=== PATIENT | female | born 1960 | race Caucasian/White ===

== ENCOUNTER 2023-05-17 11:02 | Outpatient (REF) | payer BC, SELFPAY ==
--- NOTE | ~2023-05-17 | XR_ITS ---
EXAMINATION: XR KNEE, RIGHT CLINICAL INFORMATION: Right medial knee pain. COMPARISON: None available. TECHNIQUE: Four views of the right knee. FINDINGS: There is jjpd-am-acukvamd medial compartment osteoarthritis with associated small marginal osteophytes. Lateral and patellofemoral compartments are normal. No effusion. No fracture or malalignment. XR/XR knee RT 4V IMPRESSION: Zuyu-uk-btubfwcd medial compartment osteoarthritis.
== END 2023-05-17 11:03 | disposition home or self-care (01) ==
LOC: HO.XRAY 11:02
PROVIDERS: PCP Family Medicine; Visit Provider Family Medicine
DX: M25.561 Pain in right knee (principal)
CPT/HCPCS: 73564

== ENCOUNTER 2025-04-04 10:20 | Outpatient (REF) | payer BC, SELFPAY ==
[2025-04-04 14:06] LABS: MANUAL DIFF FLAG NO
[2025-04-04 14:16] LABS: Hematocrit 39.6 % (37.0-47.0); Hemoglobin 12.7 g/dl (12.0-16.0); Imm Gran Abs Auto 0.01 X10*3/uL (0.00-0.03); Imm Gran Pct Auto 0.2 % (0.0-0.4); Lymphocytes Absolute Auto 2.0 X10*3/uL (1.2-4.9); Mean Corpuscular HGB Conc 32.1 g/dl (31.0-35.0); Mean Corpuscular Hemoglobin 29.6 pg (27.0-33.0); Mean Corpuscular Volume 92.3 fL (80.0-98.0); NRBC Abs Auto 0.000 X10*3/uL (0.0-0.012); NRBC Pct Auto 0.0 /100WBC (0.0-0.2); Platelet Count 343 X10*3/uL (160-400); Red Blood Count 4.29 X10*6/uL (4.20-5.50); White Blood Count 5.6 X10*3/uL (4.8-10.8)
[2025-04-04 14:29] LABS: Alanine Aminotransferase 14 U/L (0-31); Albumin Level 4.5 g/dL (3.5-5.0); Alkaline Phosphatase 60 U/L (39-117); Anion Gap 10 (12-20); Aspartate Amino Transferase 26 U/L (5-31); Blood Urea Nitrogen 12 mg/dL (9-16); Calcium 9.1 mg/dL (8.4-10.2); Carbon Dioxide 29 mmol/L (22-29); Chloride 107 mmol/L (96-108); Cholesterol 214 mg/dL (<200); Estimated Glomerular Filt Rate > 60; HDL Cholesterol 41 mg/dL (>40); Potassium 3.8 mmol/L (3.3-5.1); Sodium 142 mmol/L (135-145); Total Protein 7.3 g/dL (6.5-8.0); Triglycerides 138 mg/dL (<150)
[2025-04-04 14:53] LABS: Folate 9.4 ng/mL (> or = 4.0); Vitamin B12 406 pg/mL (200-900)
[2025-04-08 12:18] LABS: VITAMIN D (1,25 OH) D3 47 pg/mL; Vit D (1,25-Dihydroxy) Total 47 pg/mL (18-72); Vitamin D (1,25 OH) D2 <8 pg/mL
== END 2025-04-04 10:21 | disposition home or self-care (01) ==
LOC: HO.WFDLDS 10:20
PROVIDERS: PCP Family Medicine; Visit Provider Internal Medicine
DX: Z00.00 Encounter for general adult medical examination without abnormal findings (principal); E53.8 Deficiency of other specified B group vitamins; E55.9 Vitamin D deficiency, unspecified; D22.9 Melanocytic nevi, unspecified; Z87.09 Personal history of other diseases of the respiratory system; Z13.220 Encounter for screening for lipoid disorders; Z13.1 Encounter for screening for diabetes mellitus
CPT/HCPCS: 36415; 80053; 80061; 82607; 82652; 82746; 83036; 84443; 85025; 96127

== ENCOUNTER 2025-04-04 10:20 | Outpatient (AMB) | payer BC, SELFPAY ==
--- NOTE | 2025-04-04 10:24 | A.OFFPC_ITS ---
Vital Signs 04/04/25 10:27 Height 5 ft 4.96 in Weight 182 lb 8 oz BMI 30.4 BP 126/74 Blood Pressure Location Rt brachial Position Sitting Respiration 14 Pulse 70 Pulse Source Pulse Oximeter Temp 70 F L Temp Source Oral Pulse Oximetry (%) 97 Oxygen Delivery Method Room Air Intake Visit Reasons: CPE Intake Note: New patient visit Circus Supervisor Required: No Allergies aspirin Allergy (Severe, Verified 04/04/25 10:36) Anaphylaxis codeine Allergy (Severe, Verified 04/04/25 10:36) Hallucinations azithromycin Allergy (Unknown, Verified 04/04/25 10:36) Rash diphenhydramine (From Benadryl) Adverse Reaction (Unknown, Verified 04/04/25 10:36) reversed effects Tobacco use date assessed: 04/04/25 Fall risk assessment: No Falls in past year Last assessed Fall Risk: 04/04/25 Dental Screening Dental Screen Date: 04/04/25 Did you have a dental visit in the last 12 months?: Yes Did you have a dental problem in the last 6 months where you did not have access to dental care?: No Was dental information given to patient?: Patient has dentist HPI HPI Comments History of Present Illness Details The patient is a 65 year old female with a past medical history of sinusitis presenting for CPE A few new moles, back, neck. She has a skin lesion that has grown over time- pubic area. Non painful Colonoscopy September 2024-5 years Mammogram May 2024-[facility] Does not follow with gynecology Decline Td Declines flu vaccination ROS CONSTITUTIONAL: Denies weight loss, fever and chills. HEENT: Denies changes in vision and hearing. RESPIRATORY: Denies SOB and cough. CV: Denies palpitations and CP GI: Denies abdominal pain, nausea, vomiting and diarrhea. : Denies dysuria and urinary frequency. MSK: Denies new myalgia and joint pain. SKIN: see HPI NEUROLOGICAL: Denies headache PSYCHIATRIC: Denies recent changes in mood. PHYSICAL EXAM: GENERAL: Alert and oriented x 3. NAD EYES: EOMI. Anicteric. HENT: Moist mucous membranes. No scleral icterus. No cervical lymphadenopathy. LUNGS: Clear to auscultation bilaterally. CARDIOVASCULAR: Regular rate and rhythm. No murmur. No JVD. ABDOMEN: Soft, non-tender +bs EXTREMITIES: No edema. Non-tender. SKIN: Pearly raised lesion pubic mound. Scattered nevi,AKs,SKs NEUROLOGIC: No focal neurological deficits. CN II-XII grossly intact PSYCHIATRIC: Cooperative. Appropriate mood and affect [facility] Surgical History (Updated 04/04/25 @ 10:31 by Mary Alvarez CMA) History of appendectomy Hx of tonsillectomy Family History (Updated 04/04/25 @ 10:32 by Mary Alvarez CMA) Mother Cardiovascular disease Father Cardiovascular disease Maternal Grandmother Cardiovascular disease Father Breast cancer Social History Housing: House Patient Tobacco Use Status: Never used Tobacco e-Cigarette/Vaping Use: Never Used Second Hand Smoke Exposure: No service: No Current occupational status: retired Cognitive needs: No Hearing needs: No Vision needs: No Questionnaire PHQ-9 Over the last 2 weeks, how often have you been bothered by any of the following problems? 1. Little interest or pleasure in doing things: not at all 2. Feeling down, depressed, or hopeless: not at all 3. Trouble falling or staying asleep, or sleeping too much: not at all 4. Feeling tired or having little energy: not at all 5. Poor appetite or overeating: not at all 6. Feeling bad about yourself - or that you are a failure or have let yourself or your family down: not at all 7. Trouble concentrating on things, such as reading the newspaper or watching television: not at all 8. Moving or speaking so slowly that other people could have noticed. Or the opposite - being so fidgety or restless that you have been moving around a lot more than usual: not at all 9. Thoughts that you would be better off or of hurting yourself in some way: not at all Total score: 0 Depression Screening Interpretation: Negative Depression Screening Done: Yes 20665 - PHQ-9 Billing: Yes Source: Developed by Drs. Ross Hadley, Roseann Guido, Chun Ruiz and colleagues, with an educational joivta from [employer]. Thrive Questionnaire I am a: Patient What is your living situation today?: I have a steady place to live Within the past 12 months, did the food you bought not last and you didn't have the money to get more?: Never true Within the past 12 months, did you worry whether your food would run out before you got money to buy more?: Never true Do you have trouble paying for medicines?: No Do you have trouble getting transportation to medical appointments?: No Do you have trouble paying your heating and electricity bill?: No Do you have trouble taking care of your child, family member or friend?: No Do you have trouble with day-to-day activities such as bathing, preparing meals, shopping, managing finances, etc.?: No Are you currently unemployed and looking for a job?: No Are you interested in more education?: No Please select the resources that you would like help with: None Currently or been in a relationship where the following occur: No concerns reported THRIVE Score: 0 AUDIT C Alcohol Use Questionnaire (AUDIT-C) 1. How often do you have a drink containing alcohol?: Never Total Score: 0 DANIEL-7 AMB Questionnaire DANIEL-7 Feeling nervous, anxious, or on edge: 0 = Not at all Not being able to stop or control worryin = Not at all Worrying too much about different things: 0 = Not at all Trouble relaxin = Not at all Being so restless that it is hard to sit still: 0 = Not at all Becoming easily annoyed or irritable: 0 = Not at all Feeling afraid as if something awful might happen: 0 = Not at all Total DANIEL-7 score (0-4 normal; 5-9 mild; 10-14 moderate; 15-21 severe): 0 Source: Developed by Drs. Ross Hadley, Roseann Guido, Chun Ruiz and colleagues, with an educational jovita from [employer]. Physical exam (Primary Care) Vital Signs: Last Vital Signs Temp 70 F L 04/04/25 10:27 Pulse 70 04/04/25 10:27 Resp 14 04/04/25 10:27 BP 126/74 04/04/25 10:27 Pulse Ox 97 04/04/25 10:27 Oxygen Delivery Method Room Air 04/04/25 10:27 BMI result Body Mass Index 30.4 Tobacco/Smoking Status: Tobacco use Status Tobacco use date assessed 04/04/25 04/04/25 10:31 Patient Tobacco Use Status Never used Tobacco 04/04/25 10:31 e-Cigarette/Vaping Use Never Used 04/04/25 10:31 PHQ-9: PHQ-9 Score PHQ-9: Total score 0 04/04/25 10:34 Depression Screening Interpretation: Negative Currently or been in a relationship where the following occur: No concerns r eported Coding Level of Care Code New Pt [facility] Care 40-64y(57173) Diagnoses Physical exam Z00.00 Multiple nevi D22.9 Additional Codes PHQ-9 - 00082 - PHQ-9 Billing: Yes ([id number]) Assessment & Plan Assessment & Plan (1) Physical exam: Code(s): Z00.00 - Encounter for general adult medical examination without abnormal findings (2) Multiple nevi: Code(s): D22.9 - Melanocytic nevi, unspecified Category: Medical Plan 65 year old presenting to [facility]/CPE Past medical, surgical, social history reviewed Preventive measures for age discussed Skin lesion-referral dermatology Labs ordered Orders: Orders Comprehensive Met. Panel 04/04/25 E53.8 - Deficiency of other specified B group vitamins, E55.9 - Vitamin D deficiency, unspecified, Z00.00 - Encounter for general adult medical examination without abnormal findings, Z13.220 - Encounter for screening for lipoid disorders, Z87.09 - Personal history of other diseases of the respiratory system Lipid Panel 04/04/25 E53.8 - Deficiency of other specified B group vitamins, E55.9 - Vitamin D deficiency, unspecified, Z00.00 - Encounter for general adult medical examination without abnormal findings, Z13.220 - Encounter for screening for lipoid disorders, Z87.09 - Personal history of other diseases of the respiratory system Vitamin B12 and Folate 04/04/25 E53.8 - Deficiency of other specified B group vitamins, E55.9 - Vitamin D deficiency, unspecified, Z00.00 - Encounter for general adult medical examination without abnormal findings, Z13.220 - Encounter for screening for lipoid disorders, Z87.09 - Personal history of other diseases of the respiratory system Vitamin D 1,25 dihydroxy 04/04/25 E53.8 - Deficiency of other specified B group vitamins, E55.9 - Vitamin D deficiency, unspecified, Z00.00 - Encounter for general adult medical examination without abnormal findings, Z13.220 - Encounter for screening for lipoid disorders, Z87.09 - Personal history of other diseases of the respiratory system MM tomosynthesis screening BI 04/04/25 Z12.31 - Encounter for screening mamm ogram for malignant neoplasm of breast Complete Blood Count Auto Diff 04/04/25 E53.8 - Deficiency of other specified B group vitamins, E55.9 - Vitamin D deficiency, unspecified, Z00.00 - Encounter for general adult medical examination without abnormal findings, Z13.220 - Encounter for screening for lipoid disorders, Z87.09 - Personal history of other diseases of the respiratory system TSH reflex Free T4 04/04/25 E53.8 - Deficiency of other specified B group vitamins, E55.9 - Vitamin D deficiency, unspecified, Z00.00 - Encounter for general adult medical examination without abnormal findings, Z13.220 - Encounter for screening for lipoid disorders, Z87.09 - Personal history of other diseases of the respiratory system Hemoglobin A1c 04/04/25 E53.8 - Deficiency of other specified B group vitamins, E55.9 - Vitamin D deficiency, unspecified, Z00.00 - Encounter for general adult medical examination without abnormal findings, Z13.220 - Encounter for screening for lipoid disorders, Z87.09 - Personal history of other diseases of the respiratory system Referrals Dermatology Referral L98.9 - Disorder of the skin and subcutaneous tissue, unspecified
[2025-04-04 10:27] VITALS: BP 126/74; PULSE 70; RESP 14; TEMP 21.1; O2SAT 97; BMI 30.4
--- OUTSIDE RECORDS SUMMARY | 2025-04-04 11:40 | XMS_ITS | Clinical Summary ---
Author Organization [facility] Address [address] [place], [place] [id number] Phone Care Team Providers Care Cell Installer Name Role Phone Kenny Yates MD Primary Care Provider Allergies Active Allergy Reactions Criticality Noted Date Comments Adhesive Rash Low 09/19/2014 Codeine Hallucinations,Unknown High 09/19/2014 Diphenhydramine Unknown 09/19/2014 Other Reaction(s): increased swelling Erythromycin Unknown 09/19/2014 Other Reaction(s): rash Naproxen Anaphylaxis High 09/19/2014 Tobramycin Unknown 12/23/2022 Medications No known medications Active Problems No known active problems Family History Medical History Relation Comments Cancer Mother 2 Relation Status Comments Mother 1 Mother 2 Social History Tobacco Use Types Packs/Day Years Used Date Smoking Tobacco: Never Smokeless Tobacco: Never Tobacco Cessation:Counseling Given: Not Answered Education Answer Date Recorded Are you interested in more education? Not on ceci e 11/14/2024 Are you concerned about learning? Not on file 11/14/2024 No 11/14/2024 No 11/14/2024 Digital Access Answer Date Recorded No 11/14/2024 No 11/14/2024 Reliable internet access at home? Not on file 11/14/2024 Device with a working camera? Not on file Comments Unknown Sex and Gender Information Value Date Recorded Sex Assigned at Not on file Legal Sex Female 9:47 PM EDT Gender Identity Not on file Sexual Orientation Not on file Last Filed Vital Signs Vital Sign Reading Time Taken Comments Blood Pressure 136/86 11/14/2024 12:12 PM EDT Pulse 100 11/14/2024 12:12 PM EDT Temperature 39 C (102.2 F) 11/14/2024 12:12 PM EDT Respiratory Rate 18 11/14/2024 12:12 PM EDT Oxygen Saturation 98% 11/14/2024 12:12 PM EDT Inhaled Oxygen Concentration - - Weight 80.3 kg (177 lb) 11/14/2024 12:12 PM EDT Height 167.6 cm (5' 6 ) 11/14/2024 12:12 PM EDT Body Mass Index 28.57 11/14/2024 12:12 PM EDT Plan of Treatment Health Maintenance Due Date Last Done Comments Adult Td,Tdap Booster 1961 LIPID PANEL 1961 DEPRESSION SCREENING 1973 HEPATITIS C SCREENING 1979 HIV ONE-TIME SCREENING (18-6 5 YEARS) 1979 PAP SMEAR 1982 SCREENING FOR DIABETES 1996 MAMMOGRAM 2001 COLOGUARD 2006 COLONOSCOPY 2006 COLORECTAL CANCER SCREENING 2006 FIT TEST 2006 FOBT 2006 SIGMOIDOSCOPY 2006 VIRTUAL COLONOSCOPY 2006 PNEUMOCOCCAL VACCINES (50+ years) (1 of 1 - PCV) 2011 ZOSTER VACCINES (1 of 2) 2011 INFLUENZA VACCINE (#1) 2025 COVID-19 VACCINE (3 - 2024-2 6 season) 2025 10/03/2020, 09/12/2020 RSV VACCINE (1 - 1-dose 75+ series) 2036 SMOKING STATUS SCREENING (On ce After 26 Yrs) Completed 11/14/2024 HEPATITIS A VACCINES Aged Out No long er eligible based on patient's age to complete this topic HIB VACCINES Aged Out No longer eligi ble based on patient's age to complete this topic MENINGOCOCCAL VACCINES (ACWY) Aged Out No longer eligible based on patient's age to complete this topic MENINGOCOCCAL VACCINES (B) Aged Out N o longer eligible based on patient's age to complete this topic Medical Devices Not on file Insurance [facility] [place] [address] [place] [address] [address] [place] [address] [place] [address] [place] [address] [place] [address] PPO EPO Care Teams Cell Installer Relationship Specialty Start Date End Date Kenny Yates MD [address] [place] [address] [place] [address] PCP - General 06/08/17 Additional Source Comments The information contained in this document represents components of the legal health record. It is not the complete legal health record.[facility]
--- OUTSIDE RECORDS SUMMARY | 2025-04-04 11:40 | XMS_ITS | Encounter Summary ---
Author Organization [facility] Address [address] [place] [address] Care Team Providers Care Telegraph Mechanic Name Role Phone Kenny Yates MD Primary Care Provider [phone] Encounter Details Date Type Department Care Team (Late st Contact Info) Description 08/23/2021 Lab Requisition [facility] Pathology & Laboratory Medicine - [facility] [address] [place] [address] Javi Lindsey MD [address] [place] [id number] Encounter for other general examination Social History Tobacco Use Types Packs/Day Years Used Date Smoking Tobacco: Never Assessed Comments Unknown Sex and Gender Information Value Date Recorded Sex Assigned at Not on file Legal Sex Female 13:07 EDT Gender Identity Not on file Sexual Orientation Not on file documented as of this encounter Plan of Treatment Not on file documented as of this encounter Procedures Procedure Name Priority Date/Time Associated Diagnosis Comments SURGICAL PATHOLOGY Today 08/23/2021 12 :10 EDT documented in this encounter Results * SURGICAL PATHOLOGY (08/23/2021 12:10 EDT) Note to Patient The following pathology results have been interpreted by your pathologist and may be available to you before your health provider has had the opportunity to review them. Please allow time for your provider to receive these results and explore management options, if applicable. 08/26/2021 18:02 EDT [facility] Final Diagnosis A. COLON, RIGHT, POLYPS, BIOPSY: - Fragments of sessile serrated adenoma(s). - Fragments of tubular adenoma(s). B. COLON, MID TRANSVERSE, POLYPS, BIOPSY: - Fragments of sessile serrated adenoma(s). - Fragments of tubular adenoma(s). 08/26/2021 18:02 [facility] Attestation By the signature below, the attending physician certifies that they have 1) personally conducted a gross and/or microscopic examination of the described specimen(s), and/or personally interpreted the results of laboratory testing of the described specimen(s), and 2) personally rendered or confirmed the above diagnosis. 08/26/2021 18:02 [facility] at 1802 EDT Clinical History +Cologuard 08/26/2021 18:02 [facility] Gross Description A. Received in formalin labelled with proper patient identification (initials P, T) and right colon are irregular to polypoid tissues ranging from 0.1 cm in greatest dimension to 0.5 x 0.4 x 0.3 cm. Entirely submitted in A1. B. Received in formalin labelled with proper patient identification (initials P, T) and mid transverse 3 are irregular to polypoid tissues ranging from 0.2 cm in greatest dimension to 1.0 x 0.4 x 0.3 cm. Entirely submitted in B1-B2. KAREN OLEA(ASCP) 08/24/2021 8:35 08/26/2021 18:02 [facility] Performing Lab [facility] 08/26/2021 18:02 [facility] Scanned Images 08/26/2021 18:02 [facility] Tissue ENTIRE TRANSVERSE COLON / Unknown 08/23/2021 12:10 EDT 08/23/2021 23:30 EDT Tissue specimen (specimen) TRANSVERSE COLON STRUCTURE / Unknown 08/23/2021 12:10 EDT 08/23/2021 23:30 EDT us Javi Lindsey MD PATHOLOGY ORDERABLES Final Re sult [facility] [address] [place] [address] documented in this encounter Visit Diagnoses Diagnosis Encounter for other general examination documented in this encounter Care Teams Telegraph Mechanic Relationship Specialty Start Date End Date Kenny Yates MD [address] [place] [address] [place] [id number] PCP - General Family Medicine - Primary Care 08/03/21 documented as of this encounter
--- OUTSIDE RECORDS SUMMARY | 2025-04-04 11:40 | XMS_ITS | Encounter Summary ---
Author Organization [facility] Address [address] [place] [address] Care Team Providers Care Half Backer Name Role Phone Kenny Yates MD Primary Care Provider [phone] Encounter Details Date Type Department Care Team (Late st Contact Info) Description 08/19/2021 Lab Requisition [facility] Pathology & Laboratory Medicine - [facility] [address] [place] [address] Outr Resulting Lab, Provider Social History Tobacco Use Types Packs/Day Years [...] Procedure Name Priority Date/Time Associated Diagnosis Comments [facility] Today 08/19/2021 9:02 EDT COVID-19 TESTING Routine 08/19/2021 9:02 EDT documented in this encounter Results * COVID-19 TEST [facility] PCR (08/19/2021 9:02 EDT) Swab 08/19/2021 9:02 EDT 08/19/2021 21:25 EDT us Provider Outr Resulting Lab MICROBIOLOGY - GENER AL ORDERABLES Final Result [facility] [address] [place] [address] * COVID-19 TESTING (08/19/2021 9:02 EDT) COVID-19 rt-PCR Result Negative Negative 08/20/2021 12:20 EDT [facility] Comment: This test has not been FDA cleared or approved. This test has been authorized by FDA under an EUA for use by authorized laboratories. This test has been authorized only for detection of nucleic acid from 2019-nCoV, not for any other viruses or pathogens. This test is only authorized for the duration of the declaration that circumstances exist justifying the authorization of emergency use of in vitro diagnostic tests for detection and/or diagnosis of 2019-nCoV under section 564(b)(1) of Act, 21 U.S.C 360bbb-3(b) (1), unless the authorization is terminated or revoked sooner. Negative results do not preclude 2019-nCoV infection and should not be used as the sole basis for treatment or other patient management decisions. Negative results must be combined with clinical observations, patient history, and epidemiological information. Testing was performed using the john SARS-CoV-2 assay ([employer] on the John 6800 System Performing Lab John [address] [facility] 08/20/2021 12:20 EDT [facility] Swab 08/19/2021 9:02 EDT 08/19/2021 21:25 EDT us Provider Outr Resulting Lab MICROBIOLOGY - GENER AL ORDERABLES Final Result [facility] [address] [place] [address] documented in this encounter Visit Diagnoses Not on filedocumented in this encounter Care Teams Half Backer Relationship Specialty Start Date End Date Kenny Yates MD [address] [place] [address] DR [place], [place]ACK[place] [phone] PCP - General Family Medicine - Primary Care 08/03/21 documented as of this encounter
--- OUTSIDE RECORDS SUMMARY | 2025-04-04 11:40 | XMS_ITS | Encounter Summary ---
Author Organization [facility] Address [address] [place] [address] Care Team Providers Care Belt Machine Operator Name Role Phone Kenny Yates MD Primary Care Provider [phone] Encounter Details Date Type Department Care Team (Late st Contact Info) Description 08/22/2024 Lab Requisition [facility] - [facility] [place] [address] [place] [id number] Javi Lindsey MD [address] [place] [phone] Encounter for other general examination Social History [...] Date/Time Associated Diagnosis Comments SURGICAL PATHOLOGY Today 08/22/2024 13 :35 EDT Encounter for other general examination documented in this encounter Results * SURGICAL PATHOLOGY (08/22/2024 13:35 EDT) Note to Patient The following pathology results have been interpreted by your pathologist and may be available to you before your health provider has had the opportunity to review them. Please allow time for your provider to receive these results and explore management options, if applicable. 08/27/2024 9:13 EDT [facility] Final Diagnosis A. COLON, TRANSVERSE, POLYPECTOMY: - Tubular adenoma. B. SIGMOID, POLYPECTOMIES X2: - Hyperplastic polyp(s). - Multiple levels examined. 08/27/2024 9:13 [facility] Attestation By the signature below, the attending physician certifies that they have 1) personally conducted a gross and/or microscopic examination of the described specimen(s), and/or personally interpreted the results of laboratory testing of the described specimen(s), and 2) personally rendered or confirmed the above diagnosis. 08/27/2024 9:13 [facility] at 0913 EDT Clinical History None provided 08/27/2024 9:13 [facility] Gross Description A. Received in formalin with, Sarah G Protzenko and, transverse colon polyp and consists of an 8 x 4 x 3 mm polypoid portion of jauregui tissue. Trisected and in toto, A1. B. Received in formalin with, Sarah G Protzenko and, sigmoid colon polyps x2 and consists of 2 polypoid portions of jauregui tissue, 10 x 5 x 2 mm and 9 x 6 x 2 mm. Each portion is serially sectioned and entirely and differentially submitted in B1-B2. KAREN PARK(ASCP) 08/23/2024 10:42 08/27/2024 9:13 [facility] Performing Lab [facility] 9:13 [facility] Scanned Images 08/27/2024 9:13 [facility] Tissue SIGMOID COLON STRUCTURE / Unknown 08/22/2024 13:35 EDT 08/23/2024 9:57 EDT Tissue specimen (specimen) SIGMOID COLON STRUCTURE / Unknown 08/22/2024 13:35 EDT 08/23/2024 9:57 EDT us Javi Lindsey MD PATHOLOGY ORDERABLES Final Re sult [facility] [address] [place] [id number] documented in this encounter Visit Diagnoses Diagnosis Encounter for other general examination documented in this encounter Care Teams Belt Machine Operator Relationship Specialty Start Date End Date Kenny Yates MD [address] [facility] [address] [place], [place] [phone] PCP - General Family Medicine - Primary Care 08/03/21 documented as of this encounter
--- OUTSIDE RECORDS SUMMARY | 2025-04-04 11:40 | XMS_ITS | Clinical Summary ---
Author Organization [employer] Address [address] [place] [address] [address] [place] [address] Care Team Providers Care Tail Trimmer Name Role Phone Unavailable Primary Care Provider Unavailabl e Allergies Active Allergy Reactions Criticality Noted Date Comments Aspirin Unknown 12/23/2022 Codeine Unknown 12/23/2022 Diphenhydramine Unknown 12/23/2022 Erythromycin Unknown 12/23/2022 Naproxen Unknown 12/23/2022 Tobramycin Unknown 12/23/2022 Medications No known medications Active Problems Problem Noted Date Diagnosed Date Myopia of both eyes 12/23/2022 Posterior vitreous detachment of left eye 2022 Family History Medical History Relation Name Comments Glaucoma Father Cataracts Mother Relation Name Status Comments Father Mother Social History Tobacco Use Types Packs/Day Years Used Date Smoking Tobacco: Never Tobacco Cessation:Counseling Given: Not Answered Comments Unknown Sex and Gender Information Value Date Recorded Sex Assigned at Female 12/27/2022 11:06 AM EDT Legal Sex Female 8:35 PM EDT Gender Identity Female 12/27/2022 11:06 AM EDT Sexual Orientation Straight 12/27/2022 11 :06 AM EDT Last Filed Vital Signs Vital Sign Reading Time Taken Comments Blood Pressure 140/90 05/16/2024 11:59 AM EST Pulse - - Temperature 36.2 C (97.1 F) 05/16/2024 11:59 AM EST Respiratory Rate - - Oxygen Saturation - - Inhaled Oxygen Concentration - - Weight - - Height - - Body Mass Index - - Plan of Treatment Health Maintenance Due Date Last Done Comments CT Colonography 1961 Colonoscopy 1961 Colorectal Cancer Screening 1961 Depression Screening 1961 FIT DNA/Cologuard 1961 FIT 1961 FOBT 1961 HIV Screening 1961 SDOH Screening 1961 Sigmoidoscopy 1961 Disability Screening 1961 Alcohol/Substance Use Screening 1973 Hepatitis C Screening 1979 DTaP/Tdap/Td Vaccines (1 - Tdap) 1980 Pap Smear 1982 Cervical Cancer Screening 1991 HPV/Cotest 1991 Mammogram 2001 Pneumococcal Vaccine: 50+ Years (1 of 1 - PCV) 2011 Zoster Vaccines (1 of 2) 2011 COVID-19 Vaccine (3 - 2024-2 6 season) 2025 10/03/2020, 09/12/2020 Influenza Vaccine (#1) 2025 Tobacco Screening 05/16/2025 05/16/2024 RSV Patients and Patients Aged 60 years or older (1 - 1-dose 75+ series) 2036 HIB Vaccines Aged Out No longer eligi ble based on patient's age to complete this topic HPV Vaccines Aged Out No longer eligi ble based on patient's age to complete this topic Hepatitis A Vaccines Aged Out No long er eligible based on patient's age to complete this topic Hepatitis B Vaccines Aged Out No long er eligible based on patient's age to complete this topic IPV Vaccines Aged Out No longer eligi ble based on patient's age to complete this topic Meningococcal B Vaccine Aged Out No l onger eligible based on patient's age to complete this topic Meningococcal Vaccine Aged Out No becca demetrio eligible based on patient's age to complete this topic RSV under 20 months Aged Out No longe r eligible based on patient's age to complete this topic Rotavirus Vaccines Aged Out No longer eligible based on patient's age to complete this topic Insurance BCBS PPO BCBS PPO
--- OUTSIDE RECORDS SUMMARY | 2025-04-04 11:40 | XMS_ITS | Clinical Summary ---
Author Organization [facility] Address [address] [place] [address] Care Team Providers Care Analyst Competitive Intelligence Name Role Phone Kenny Yates MD Primary Care Provider [phone] Social History Tobacco Use Types Packs/Day Years Used Date Smoking Tobacco: Never Assessed Comments Unknown Sex and Gender Information Value Date Recorded Sex Assigned at Not on file Legal Sex Female 13:07 EDT Gender Identity Not on file Sexual Orientation Not on file Plan of Treatment Health Maintenance Due Date Last Done Comments Hepatitis C Screen 1961 COVID-19 Vaccine (2023-25 season) 2024 RSV Immunization ( o r 60+ Years) (1 - 1-dose 75+ series) 2036 Insurance [facility] Care Teams Analyst Competitive Intelligence Relationship Specialty Start Date End Date Kenny Yates MD [address] [place] [address] [place] [id number] PCP - General Family Medicine - Primary Care 08/03/21
== END 2025-04-04 11:00 | disposition home or self-care (01) ==
LOC: HO.HMCFM 10:21
PROVIDERS: PCP Family Medicine; Visit Provider Internal Medicine
DX: Z00.00 Encounter for general adult medical examination without abnormal findings (principal); D22.9 Melanocytic nevi, unspecified